=== PATIENT | female | born 1960 | race African-American/Black ===

== ENCOUNTER 2017-12-25 15:24 | Emergency (ER) | payer MEDICAID, OTHER ==
[~2017-12-25] VITALS: Ht 162.6 cm; Wt 45.4 kg
[2017-12-25 15:24] VITALS: BP 163/106
== END 2017-12-25 17:04 | disposition home or self-care (01) ==
LOC: ER 15:29
DX: S93.601A Unspecified sprain of right foot, initial encounter (principal); S99.911A Unspecified injury of right ankle, initial encounter; F41.9 Anxiety disorder, unspecified; M85.80 Other specified disorders of bone density and structure, unspecified site; X58.XXXA Exposure to other specified factors, initial encounter; Y93.89 Activity, other specified; Y92.89 Other specified places as the place of occurrence of the external cause; Y99.8 Other external cause status
CPT/HCPCS: 73610; 99284; A4606; Z7610

== ENCOUNTER 2018-01-24 18:29 | Emergency (ER) | payer OTHER ==
[~2018-01-24] VITALS: Ht 160 cm; Wt 59.0 kg
[2018-01-24 18:29] VITALS: BP 135/107
--- NOTE | 2018-01-24 19:36 | NUR ---
PT STATES SHE DOES NOT WANT TO BE IN THE ER AND STATES SHE WILL CALL HER PRIMARY MD TOMORROW MORNING TO GET BLOOD WORK DONE THERE INSTEAD, NICOLE CHAN MADE AWARE, Patient does not wish to proceed with medical care recommended by NICOLE CHAN. Patient given information related to possible complications, up to and including , which could occur as a result of leaving the hospital at this time. Patient verbalizes understanding of risks involved due to leaving against medical advice. Patient has signed AMA form.
== END 2018-01-24 19:39 | disposition left against medical advice (07) ==
LOC: ER 18:30
DX: R50.9 Fever, unspecified (principal); F41.9 Anxiety disorder, unspecified; Z53.20 Procedure and treatment not carried out because of patient's decision for unspecified reasons
CPT/HCPCS: A4606; Z7502; Z7610

== ENCOUNTER 2022-02-03 19:21 | Emergency (ER) | payer OTHER ==
[~2022-02-03] VITALS: Ht 160 cm; Wt 39.5 kg
--- NOTE | 2022-02-03 19:35 | NUR ---
BIBCAREGIVER. BILAT KNEE AND L FOOT PAIN X 1 HR. STEPPED WRONG ON STAIRS PT IS VERY ANXIOUS. PATIENT ALERT AND ORIENTED X3. BROUGHT IN BY WHEELCHAIR DUE TO THE FOOT PAIN. PATIENT IN BED 09 AWAITING MD PASCUAL.
--- NOTE | 2022-02-03 21:49 | NUR ---
Patient discharged to home in stable condition. Written and verbal after care instructions given. Patient verbalizes understanding of instruction. KAYLA WRAP PROVIDED PER MD ORDER.
[2022-02-03 21:50] VITALS: BP 121/68
== END 2022-02-03 21:55 | disposition home or self-care (01) ==
LOC: ER 19:25
DX: S83.92XA Sprain of unspecified site of left knee, initial encounter (principal); S83.91XA Sprain of unspecified site of right knee, initial encounter; S93.692A Other sprain of left foot, initial encounter; F41.9 Anxiety disorder, unspecified; W18.30XA Fall on same level, unspecified, initial encounter; Y93.89 Activity, other specified; Y92.89 Other specified places as the place of occurrence of the external cause; Y99.8 Other external cause status
CPT/HCPCS: 73564-TC; 73630-TC

== ENCOUNTER 2022-05-16 16:15 | Emergency (ER) | payer OTHER ==
[~2022-05-16] VITALS: Ht 160 cm; Wt 36.3 kg
--- NOTE | 2022-05-16 17:00 | NUR ---
BIBFAMILY FROM HOME C/O WEAKNESS [id number], NO APPETITE. THE PATIENT IS ALERT AND ORIENTED X4. IN ROOM AIR AND DENIES SOB. RESPIRATION REGULAR AND UNLABORED. DENIES PAIN. ATTACHED TO THE MONITOR. WARM BLANKET PROVIDED FOR COMFORT. WILL CONTINUE TO MONITOR THE PATIENT.
[2022-05-16] MEDS ORDERED: IV NS 0.9% 1,000 ML BAG IV ONE (17:30)
--- NOTE | 2022-05-16 17:40 | NUR ---
PATIENT IS ANXIOUS AND UNCOOPERATIVE IN STARTING AN IV AND DRAWING BLOOD
--- NOTE | 2022-05-16 17:45 | NUR ---
ENTERPRISE ENGINEER AT BEDSIDE FOR BLOOD DRAW
--- NOTE | 2022-05-16 18:00 | NUR ---
THE PATIENT REFUSED IV INSERTION, BLOOD DRAW DESPITE EXPLAINING RISKS AND BENEFITS. DR ALICIA MADE AWARE.
--- NOTE | 2022-05-16 18:11 | NUR ---
Patient does not wish to proceed with medical care recommended by Dr. English. Patient given information related to possible complications, up to and including , which could occur as a result of leaving the hospital at this time. Patient verbalizes understanding of risks involved due to leaving against medical advice. Patient has signed AMA form.
[2022-05-16 18:12] VITALS: BP 102/55
[2022-05-23] MEDS ORDERED: Lorazepam PO (07:56)
== END 2022-05-16 18:13 | disposition left against medical advice (07) ==
LOC: ER 16:20
DX: R62.7 Adult failure to thrive (principal); R53.1 Weakness; E43 Unspecified severe protein-calorie malnutrition; Z68.1 Body mass index [BMI] 19.9 or less, adult; F41.9 Anxiety disorder, unspecified; Z86.16 Personal history of COVID-19
CPT/HCPCS: J7030

== ENCOUNTER 2022-05-20 16:46 | Inpatient (IN) | payer OTHER ==
[~2022-05-20] VITALS: Ht 162.6 cm; Wt 34.0 kg
--- NOTE | 2022-05-20 17:30 | NUR ---
BIB FRIEND C/O WEAKNESS. "I FEEL DEHYDRATED" FOR A LONG TIME NOW. THE PATIENT IS ALERT AND ORIENTED X4. IN ROOM AIR AND DENIES SOB. RESPIRATION REGULAR AND UNLABORED. THE PATIENT IS ATTACHED TO THE MONITOR. WARM BLANKET PROVIDED FOR COMFORT. WILL CONTINUE TO MONITOR THE PATIENT.
[2022-05-20] MEDS ORDERED: ONDANSETRON HCL/PF 4 MG/2 ML VIAL IVP ONE (18:00)
[2022-05-20] MEDS ORDERED: IV NS 0.9% 1,000 ML BAG IV ONE (18:00)
[2022-05-20] MEDS ORDERED: ONDANSETRON HCL/PF 4 MG/2 ML VIAL ONE (18:08)
[2022-05-20 18:20] LABS: HEMATOCRIT 38 % (33-45); HEMOGLOBIN 12.9 g/dL (11.5-14.8); LYMPHOCYTES # (AUTO) 0.3 K/uL (0.8-4.8); LYMPHOCYTES % (AUTO) 3.2 % (20.0-44.0); MEAN CORPUSCULAR HGB CONC 34 g/dl (31.0-36.0); MEAN CORPUSCULAR VOLUME 89 fL (82-100); MONOCYTES # (AUTO) 0.5 K/uL (0.1-1.30); MONOCYTES % (AUTO) 5.9 % (2.0-12.0); NEUTROPHILS # (AUTO) 7.8 K/uL (1.8-8.9); NEUTROPHILS % (AUTO) 90.9 % (43.0-81.0); PLATELET COUNT (AUTO) 259 K/uL (150-450); RED BLOOD CELL COUNT(AUTO) 4.28 MIL/uL (4.0-5.2); WHITE BLOOD COUNT (AUTO) 8.6 K/uL (4.3-11.0)
[2022-05-20 18:31] LABS: CALCIUM, SERUM 9.6 mg/dL (8.5-10.1); CARBON DIOXIDE 13 mmol/L (21-32); CHLORIDE 93 mmol/L (98-107); CREATININE 1.2 mg/dL (0.6-1.3); GLUCOSE 83 mg/dL (74-106); POTASSIUM 3.5 mmol/L (3.5-5.1); SODIUM SERUM 134 mmol/L (136-145); UREA NITROGEN, BLOOD 18 mg/dL (7-18)
[2022-05-20 18:32] LABS: MAGNESIUM 2.3 mg/dL (1.8-2.4); PHOSPHORUS 4.2 mg/dL (2.5-4.9)
[2022-05-20 18:36] LABS: SERUM AMMONIA < 10 umol/L (11-32)
--- NOTE | 2022-05-20 19:05 | NUR ---
COVID TEST COLLECTED AND SENT
--- NOTE | 2022-05-20 19:13 | NUR ---
MOVE SHEET SUBMITTED.
[2022-05-20 19:23] LABS: ALANINE AMINOTRANSFERASE 11 U/L (12-78); ALKALINE PHOSPHATASE 43 U/L (46-116); ASPARTATE AMINOTRANSFERASE 7 U/L (15-37); BILIRUBIN,DIRECT 0.3 mg/dL (0.0-0.2)
[2022-05-20 19:24] LABS: ALBUMIN 3.8 g/dL (3.4-5.0); TOTAL PROTEIN, SERUM 7.1 g/dL (6.4-8.2)
--- NOTE | 2022-05-20 19:32 | NUR ---
report given to nurse Vilchis for alistair
--- NOTE | 2022-05-20 19:38 | NUR ---
URINE COLLECTED AND SENT TO LAB
[2022-05-20 19:57] LABS: LIPASE 69 U/L (73-393)
--- NOTE | 2022-05-20 19:57 | NUR ---
LIPASE CORRECTED TO 69 DR. MANJIT DICKSON AWARE
--- NOTE | 2022-05-20 20:34 | NUR ---
RN SPOKE TO BRIAN SEASONAL WAREHOUSE ASSOCIATE STATED PT WILL MOST LIKELT TRANSFER TO [facility] BUT WILL CALL BACK TO CONFIRM
[2022-05-20 20:41] LABS: BILIRUBIN,URINE SMALL (NEGATIVE); COLOR,URINE YELLOW (YELLOW); LEUKOCYTE ESTERASE ,URINE NEGATIVE (NEGATIVE); NITRITE, URINE NEGATIVE (NEGATIVE); PH,URINE 5.5 (5.0-8.0); PROTEIN,URINE TRACE mg/dl (NEGATIVE); UGLUCOSE NEGATIVE (NEGATIVE); UROBILINOGEN,URINE 0.2 EU/dL (0.2)
[2022-05-20 20:58] LABS: BACTERIA,URINE Few /HPF (None Seen); RBC,URINE 0-2 /HPF (0-2); SQUAMOUS EPITHELIAL CELL,UR Few /HPF (None Seen); URINE AMORPHOUS URATE Moderate /HPF (None Seen); WBC,URINE 0-2 /HPF (0-3)
--- NOTE | 2022-05-20 21:34 | NUR ---
RT attempted abg. unable to obtain. pt refused another try. notified dr carvalho. vbg instead.
[2022-05-20 22:38] LABS: ABG BASE EXCESS -9.3 mmol/L; ABG PCO2 32.7 mmHg (35.0-45.0); ABG PH 7.307 (7.350-7.450); ABG PO2 15.8 mmHg (75.0-100.0); COHb 0.3 % (0.5-1.5); MetHb 1.8 % (0.0-1.5); O2Hb 21.9 % (94.0-97.0); SITE, ABG Other; VENT MODE, BG ROOM AIR
--- NOTE | 2022-05-20 22:40 | NUR ---
RT NOTE VBG TAKEN BY RN AND RESULTS GIVEN TO
--- NOTE | 2022-05-21 04:17 | NUR ---
pt awake and alert breathing even and unlabored. call light in reach and communicating needs. remains on monitor and vitals remain stable.
--- NOTE | 2022-05-21 08:24 | NUR ---
report given to Tacos ERICKSON to continue care.
[2022-05-21] MEDS ORDERED: ACETAMINOPHEN 325 MG TABLET PO PRN (08:30)
[2022-05-21] MEDS ORDERED: POTASSIUM CHLORIDE 20 MEQ TAB.PRT.SR PO ONE (09:00)
[2022-05-21] MEDS: IV D5/ NS 10 MEQ KCL 1000 ML IV SCH ×4 (10:00→18:42)
--- NOTE | 2022-05-21 10:13 | NUR ---
room 109
--- NOTE | 2022-05-21 10:37 | NUR ---
report given to Antonieta ERICKSON to continue care.
--- NOTE | 2022-05-21 11:15 | NUR ---
patient wheeled via gurney accompanied by RN and emt in no distress. RN assigned at bedside to assume care.
[2022-05-21 11:55] VITALS: BP 111/69
[2022-05-21 16:00] VITALS: BP 104/64
[2022-05-21] MEDS: PROSOURCE / PROSTAT (PYXIS) 30 ML UDC PO SCH (17:50)
--- NOTE | 2022-05-21 18:16 | NUR ---
RN NOTE TALKED TO PT'S SISTER YOUNG ([phone]) AT BEDSIDE. SISTER EXPRESS DESIRE TO TALK DIRECTLY TO BASEBALL SCOUT AND DIETARY TOMORROW AM. SISTER EXPRESS DESIRE TO PT TO RECEIVE A PSYCH CONSULT TO RULE OUT POSSIBLE EATING DISORDER LEADING TO HER FAILURE TO THRIVE.
[2022-05-21 20:00] VITALS: BP 103/79
[2022-05-21] MEDS: MIRTAZAPINE 15 MG TABLET PO SCH ×2 (22:00→22:38)
--- NOTE | 2022-05-21 23:05 | NUR ---
AISLINN/MEDICAL DIAGNOSTIC RADIOGRAPHER PT REFUSED MEDICATION @2200. SAID HER STOMACH HURTS, WHEN OFFERED PAIN MED. PT REFUSED.
--- NOTE | 2022-05-22 00:19 | NUR ---
AISLINN/APPLICATION TRAINER SPOT CHECK OF BLOOD SUGAR BECAUSE LAST SUGAR CHECK WAS 53, IT'S NOW 229. NO COVERAGE FOR THIS. WILL MONITOR THIS PT'S SUGAR
--- NOTE | 2022-05-22 02:31 | NUR ---
AISLINN/MARINE SPECIALIST PT APPEARS TO BE SLEEPING COMFORTABLE WITHOUT ANY ISSUES. CALL LIGHT WITHIN REACH.
[2022-05-22 04:00] VITALS: BP 111/65
[2022-05-22] MEDS: IV D5/ NS 10 MEQ KCL 1000 ML IV SCH ×4 (05:13→19:00)
--- NOTE | 2022-05-22 05:45 | NUR ---
AISLINN/INSOLE TAPE STITCHER UCO PT REFUSED TO HAVE BLOOD DRAWN SAID SHE IS IN PAIN. WILL TRY AGAIN LATER.
--- NOTE | 2022-05-22 06:30 | NUR ---
AISLINN/BOB CALLED [facility] 1900 FOR THIS PT TO HAVE PSYCH CONSULT THEY SAID DR WILL COME SEE PT AND UPDATED ROOM.
--- NOTE | 2022-05-22 07:30 | NUR ---
OPENING NOTE: REPORT RECEIVED FROM NEDRA ROJAS. ORDERS AND LABS REVIEWED DURING REPORT. PT CHECKED ON HOURLY AND PRN BY NURSING STAFF.
[2022-05-22 07:33] LABS: BASOPHILS % (AUTO) 0.1 % (0.0-2.0); EOSINOPHILS % (AUTO) 0.1 % (0.0-6.0); HEMATOCRIT 29 % (33-45); LYMPHOCYTES # (AUTO) 0.3 K/uL (0.8-4.8); LYMPHOCYTES % (AUTO) 6.5 % (20.0-44.0); MEAN CORPUSCULAR HGB CONC 35 g/dl (31.0-36.0); MEAN CORPUSCULAR VOLUME 87 fL (82-100); MONOCYTES # (AUTO) 0.3 K/uL (0.1-1.30); MONOCYTES % (AUTO) 6.7 % (2.0-12.0); NEUTROPHILS # (AUTO) 4.4 K/uL (1.8-8.9); NEUTROPHILS % (AUTO) 86.6 % (43.0-81.0); PLATELET COUNT (AUTO) 154 K/uL (150-450); RED BLOOD CELL COUNT(AUTO) 3.28 MIL/uL (4.0-5.2); WHITE BLOOD COUNT (AUTO) 5.1 K/uL (4.3-11.0)
[2022-05-22] MEDS: PROSOURCE / PROSTAT (PYXIS) 30 ML UDC PO SCH ×3 (08:00→17:00)
[2022-05-22] MEDS ORDERED: LORAZEPAM 0.5 MG TABLET PO PRN (09:30)
[2022-05-22] MEDS: POLYVINYL ALCOHOL 15 ML BOTTLE EACHEYE PRN ×2 (09:34→17:51)
[2022-05-22] MEDS ORDERED: ZOLPIDEM TARTRATE 5 MG TABLET PO PRN (10:00)
[2022-05-22 10:48] LABS: BILIRUBIN,TOTAL 0.7 mg/dL (0.2-1.0); CALCIUM, SERUM 8.7 mg/dL (8.5-10.1); CREATININE 0.8 mg/dL (0.6-1.3); TOTAL PROTEIN, SERUM 5.8 g/dL (6.4-8.2)
[2022-05-22 10:54] LABS: THYROID STIMULATING HORMONE 5.949 uIU/mL (0.358-3.74)
[2022-05-22 10:58] LABS: POTASSIUM 2.6 mmol/L (3.5-5.1)
--- NOTE | 2022-05-22 11:15 | NUR ---
DR RIVERA NOTIFIED OF PATIENTS POTASSIUM RESULT OF 2.6, PT REFUSING TO TAKE PILLS. AWAITING REPLY
[2022-05-22 11:24] VITALS: BP 110/54
--- NOTE | 2022-05-22 11:30 | NUR ---
REPORT CALLED TO EBENEZER ERICKSON FOR PT TRANSFER TO ROOM 326
--- NOTE | 2022-05-22 11:35 | NUR ---
MS RN NOTE RECEIVED VERBAL REPORT FROM ATUL. AWAITING PATIENT TRANSFER.
--- NOTE | 2022-05-22 11:40 | NUR ---
PT REFUSED TO BE TRANSFERRED TO 3 BECAUSE SHE REFUSES TO BE IN THE ELEVATOR. RN AND BUS OR TRUCK GARAGE MECHANIC SPOKE TO PATIENT. PATIENT CONTINUES TO REFUSE. TRANSFER TO 3 CANCELLED.
[2022-05-22] MEDS: POTASSIUM CL. PREMIX PERIPHER. 50 ML IV SCH ×7 (12:27→23:30)
[2022-05-22] MEDS ORDERED: IV NS 0.9% 250 ML IV PRN (12:30)
--- NOTE | 2022-05-22 14:42 | NUR ---
SS Consult: SS Consult requested for safe DC planning. The pt. is a 62-year-old female patient that was brought in by friend after pt. felt weakness/ dehydrated per EMR. Upon SS consult, the pt. is A&O x 4 and makes poor eye contact. Pt. states she has a headache and it hurt to keeps eyes open. The pt. appears well-groomed and presents with dysphoric mood and distressed affect. Pt. denies current SI/HI and denies current hallucinations. Pt. has normal thought process and speech is WNL. Pt. states she had COVID-19 IN 03/2022 and began to have very bad gastrointestinal problems. Per pt. is became difficult and painful to eat and per pt. she has lost weight. ANGE explored pt.s living situation. Per pt., she lives at home[[address] [facility] [address]; [phone]] alone. ANGE explored pt.s drug or alcohol use and pt. denies any use of drug or alcohol. Pt. states she receives SSI and food stamps. ANGE explored pt.s mental health pt. stated she has Hx. of Anxiety and per EMR, pt. has psych consult. Plan: Pt. stated that after COVID-19 she began to get so weak she was not able to care for herself. Pt. states when medically cleared she would like to go to live with her Sister, Joseline [phone]. Pt. states she discussed this with Joseline and that Joseline is thinking about it. Pt. states if she goes home to her apt[[address] [facility] [address]; [phone]] she may need additional help. ANGE notified pt. that MD an possibly PT will be making recommendations on level of care she needs at time of DC. Pt. is agreeable to plan. ANGE provided pt. with senior resources (caregiving, transportation, MealS, DME)and pt. accepted them. ABUSE PREVENTION: ELDER ABUSE HOTLINE (24/05) ADULT PROTECTIVE SERVICES HOTLINE LONG-TERM CARE [facility] Region AREA ON AGING (HOTLINE) ADULT DAY HEALTH CARE CARE CENTERS: Private pay or [facility] company funded adult day care [place] Adult Day Health Care [facility] , [facility] , [facility] Adult [facility] Center , [facility] Adult Day Health Care , [facility] Day Health Care , Merged With [facility] Adult Daycare Center , [place] [facility] , [facility] , [place] ALZHEIMERS DISEASE/DEMENTIA: Alzheimers Association Helpline [facility] www.alz.org/[facility] Department of Aging www.lacity.org Family Caregiver [place] www.caregiver.org [place] Caregiver Resources Center/Family Support www.[facility].org CANCER RESOURCES: [place] Cancer Society www.cancer.org Cancer Support Community www.CancerSupportVvsb.org: CancerCare www.cancercare.org [facility] Cancer Support Center www.[facility].org COMMUNITY HEALTH ASSOCIATIONS: AARP www.aarp.org ALS Association (ask for Keesha) www.als.org Egyptian Diabetes Association www.diabetes.org Egyptian Heart Association www.heart.org Egyptian Lung Association www.lungusa.org Egyptian Parkinson Disease Association www.apdaparkinson.org Egyptian [place] , www.redcross.org Arthritis Foundation www.arthritis.org Crohns & Colitis Foundation of [place] www.ccfa.org/chapters/[place] National Multiple Sclerosis Society www.nationalmssociety.org Myasthenia Gravis Foundation www.myasthenia-ca.org National Stroke Association www.stroke.org CONSERVATORSHIP & GUARDIANSHIP: AARP Evelia Becerar Legal Services Center for Health Care Rights Eldercare Information and Referral Barrel Bung Remover And Dumper Foundation [facility]: [facility] Referral Service [facility] Legal Services Office of the Public Guardian [place] EYESIGHT DISORDER RESOURCES: [place] Macular Degeneration Foundation [facility] www.mt. [facility].org GRIEF AND BEREAVEMENT RESOURCES: The Gathering Place , [facility] THE [place] Connection , [facility] Bereavement Center , Pauline HEARING DISORDER RESOURCES: [place] Telephone Access Program Deaf and Disabled Telecommunications Program www.ddtp.[facility].ca.gov HearRx Hearing Centers ([place]) Better Hearing Systems , Pauline GLAD ([facility] Agency on Deafness) V/ TTY; Third Cook , [facility] Hearing [facility] -low income hearing aid assistance www.Mashworkhearingfoundation.org [place] Hearing Care , Anthony HELP AT HOME CAREGIVER SUPPORT: In Home Support Services (Must have Medi-Pato to be eligible) *Ask for a list of agencies that provide services to assist with care in the home. Local Senior Centers also have listings of care providers. HOME SAFETY MODIFICATIONS AND EQUIPMENT: Senior centers have additional referrals. [place] NEXTA Media and Community Investment Dept. Handyworker Program (low income) or Visit http://hcidla.[facility].org/edj-tdxhxj-ox for more information National Seating and Mobility and/or ; Forever Active www.foreverTactus Technology.GameCrush Stay Home Safe www.Stayhomesafe.com LIFE ALERT RESPONSE SYSTEM: Evolver Services 410-088-7300 www. BBL Enterprises Life Alert 719-837-7511 www.Lumavita Life Station 745-421-8009 www.ScreenScape Networksation.GameCrush Safe Return 962-026-2476 www.alz.or/safereturn Cell Phones for Seniors www.Procarta Biosystems MEALS AND FOOD PROGRAMS: [place] Meals on Wheels [phone] [place] Meals on Wheels [phone] [facility] [phone] [place] to the Homebound [phone] [place] to the Homebound [phone] [facility] to the Homebound [phone] [facility] to the Homebound [phone] Jung Esteves [phone] [facility] [phone] ONE Generation [phone] [facility] [phone] [facility] [place] [phone] Meals on Wheels [phone] For all ages: $6.85/ meal w side. Delivered M-F from 10 am-1pm. Application and payment is done over the phone. Frozen meals available for weekends. Emergency Food [facility] [phone] [facility] Front Counter Attendant [phone] [facility] [phone] Steve Sharma Outreach- Brown bag lunches [phone] [facility] [phone] MEAL/GROCERY DELIVERY PROGRAMS: Toni Hutchins Gourmet Meals [phone]- [facility] [phone]- [facility] Magic Kitchen [phone] Moms Meals [phone] (ask Ray for Discount Select grocery stores may provide delivery. MEDICAL INSURANCE SUPPORT SERVICES: Center for Health Care Rights [phone] Health Insurance Counseling/Advocacy Programs (HICAP)-Must have Medicare. Offers counseling for Medi-Pato eligibility [phone] [facility] Public Front Counter Attendant [phone] www.[facility].ca.gov Medicare [phone] www.socialsecurity.org Social Security [phone] SENIOR ACTIVITY PROGRAMS: *Contact a local senior center, adult school, recreation facility or community college for education, fitness, recreation, and social programs. Aquatic Therapy and Adapted Exercise programs through [facility] [phone] Encore at [facility] [phone] www.[facility]/encore U- Senior Friends [phone] [place] Senior Programs [phone] www.oasisnet.org Suddenly 65 www.cwumjvhz47.com SENIOR CENTERS: [facility] [phone] [facility] [phone] [facility] [phone] [facility] [phone] [facility] [phone] [facility] [phone] [facility] [phone] [facility] [phone] One Generation, [place]eda [facility] [phone] [facility] [phone] [facility] [phone] [facility] [phone] [facility] [phone] TRANSPORTATION: Local Senior Centers may have applications for transportation programs and additional resources. ACCESS Services [phone] Transportation for seniors and disabled persons 7 days a week requiring 254 hr. advance reservation. Must apply and register for program kvng eligible. Comeet [phone] or [phone] Transportation for seniors and persons with ADA card/metro disabled card in the [facility]. M-F only. Must register for services. ONE GENERATION [phone] Serves 65 years + in conjunction with myFairPartner program. Must be registered with both programs. A to B Transport [phone] Provides wheelchair/gurney van service. Adult Medical Transport [phone] Accepts Medi-pato with prior authorization. Care Van [phone] Provides wheelchair Transport. [facility] Wide Transportation [phone] Provides gurney service Gentle [facility] [phone] Gurney Transport. [facility] Transportation [phone] wheelchair & gurney transport [facility] Transportation [phone] wheelchair & gurney transport [place] Non-Emergency Transport [phone] wheelchair & gurney transport [facility] [phone] Short Term Transportation primarily for adults with disabilities on social security income. Nominal fee may apply and a reservation is required. [facility] Cab [phone] or [phone] YABUY [facility] [phone] [place] [address] Referral Services [phone] For additional programs & services VETERANS RESOURCES: Submissions for Aid and Attendance should be done directly to Federal VA office locatd at : [address] [facility] [phone] National Caregiver Support Line [phone] [facility] Veterans Services Field Office [phone] [place] Department of [place] Affairs [phone] Pension Information [phone]
--- NOTE | 2022-05-22 15:00 | NUR ---
IVF AND POTASSIUM INFUSION STOPPED AT THIS TIME PER PT REQUEST D/T PAIN IN IV SITE. MIDLINE ORDER PLACED. PT REFUSES FOR ANOTHER PERIPHERAL IV TO BE STARTED OR ANY IVF STARTED AT THIS TIME.
[2022-05-22 16:00] VITALS: BP 106/58
--- NOTE | 2022-05-22 18:10 | NUR ---
MS RN NOTE FOLLOW-UP MADE, CALLED A[facility]LINN AND WAS TOLD THEY ARE HOLDING OFF TRANSFER FOR NOW.
--- NOTE | 2022-05-22 18:21 | NUR ---
RIGHT UPPER ARM MIDLINE INSERTED WITHOUT DIFFICULTY AT THIS TIME. IVF AND POTASSIUM RESUMED PER MD ORDERS
--- NOTE | 2022-05-22 19:20 | NUR ---
MS RN OPENING NOTES: RECEIVED PATIENT IN BED, COVERED HER EYES WITH THE TOWEL, AWAKE, INTERACTS WHEN TALK TO HER. NO S/S OF DISTRESS NOTED. NO COMPLAIN OF PAIN. CALL LIGHT WITHIN REACH. BED ALARM ON. BED IN LOWEST AND LOCKED POSITION.
[2022-05-22 20:00] VITALS: BP 97/60
[2022-05-23] MEDS: POTASSIUM CL. PREMIX PERIPHER. 50 ML IV SCH (00:45)
[2022-05-23] MEDS: IV D5/ NS 10 MEQ KCL 1000 ML IV SCH ×4 (04:36→15:17)
[2022-05-23 05:00] VITALS: BP 108/70
--- NOTE | 2022-05-23 07:30 | NUR ---
RN OPENING NOTE PATIENTIS IN BED, AWAKE ALERT ORIENTED X 4.ON ROOM AIR, BREATHING UNLABORED AND NOT IN ANY FORM OF DISTRESS. DENIES PAIN. WITH RIGHT UPPER ARM MIDLINE INFUSING WITH NS AT 10 MEQ KCL AT 100 ML/HR, NO INFILTRATION OF PHLEBITIS NOTED ON IV SITE. BED IS LOCKED IN LOWEST POSITION, 3 SIDE RAILS UP. CALL LIGHT WITHIN REACH. WILL CONTINUE TO MONITOR THROUGHOUT SHIFT.
[2022-05-23] MEDS ORDERED: Lorazepam PO (07:56)
[2022-05-23 07:57] LABS: CALCIUM, SERUM 8.5 mg/dL (8.5-10.1); CREATININE 0.8 mg/dL (0.6-1.3); MAGNESIUM 1.7 mg/dL (1.8-2.4); PHOSPHORUS 1.2 mg/dL (2.5-4.9)
[2022-05-23] MEDS: PROSOURCE / PROSTAT (PYXIS) 30 ML UDC PO SCH ×3 (08:54→17:00)
[2022-05-23] MEDS: Magnesium 1GM/D5W 100ML PREMIX 100 ML IV SCH ×2 (08:57→09:30)
[2022-05-23] MEDS: POLYVINYL ALCOHOL 15 ML BOTTLE EACHEYE PRN (08:57)
[2022-05-23] MEDS: POTASSIUM PHOSPHATE MM 7.5 MMOL in IV NS 0.9% 100 ML IV SCH ×2 (08:59→11:56)
[2022-05-23] MEDS: K PHOS NEUTRAL 250 MG TABLET PO SCH ×3 (08:59→17:00)
[2022-05-23 10:00] VITALS: BP 111/69
--- NOTE | 2022-05-23 10:39 | NUR ---
RN NOTE PATIENT REFUSED SECOND BAG OF MAGNESIUM AND STATED THAT MAGNESIUM GIVES HER DIARRHEA. I EDUCATED HER ABOUT WHAT THE MEDICATION IS FOR AND IT'S INTENDED EFFECT BUT PATIENT STILL REFUSED. Addendum: 05/23/22 at 1133 by SHIRLEY THEODORE RN PATIENT NOW STATES SHE SI STILL THINKING ABOUT GETTING MAGNESIUM. SHE SAYS SHE NEEDS TIME TO DECIDE. MAGNESIUM (BAG IS PUNCTURED AND IS IN IV PUMP) IS STILL ON STANDBY AT BEDSIDE. Addendum: 05/23/22 at 1602 by SHIRLEY THEODORE RN PATIENT HAS DECIDED THAT SHE WILL NOT TAKE MAGNESIUM IV.
--- NOTE | 2022-05-23 16:03 | NUR ---
RN NOTE PATIENT NOTED TO BE ANXIOUS. I OFFERED GIVING HER ATIVAN FOR HER ANXIETY BUT SHE REFUSED. I PROVIDED A CALM AND QUIET ENVIRONMENT INSTEAD AND REASSURED HER THAT SHE IS SAFE.
--- NOTE | 2022-05-23 16:25 | NUR ---
RN NOTE PATIENT REFUSED IV INFUSION OF 10 MEQ KCL IN NORMAL SALINE AT 100 ML/HR. PATIENT STATED "I'M HAVING DIARRHEA BECAUSE OF ALL THE FLUIDS YOU ARE GIVING." I EXPLAINED TO HER WHY SHE NEEDS THE INFUSION BUT PATIENT STILL REFUSED.
[2022-05-23] MEDS ORDERED: MENTHOL/CETYLPYRD (CEPACOL) 1 LOZ LOZENGE PO PRN (17:30)
--- NOTE | 2022-05-23 18:42 | NUR ---
RN CLOSING NOTE PATIENT IS RESTING COMFORTABLY IN BED, ASLEEP BUT EASILY AROUSABLE. ON ROOM AIR, BREATHING UNLABORED AND NOT IN ANY FORM OF DISTRESS,. STILL ANXIOUS. RIGHT UPPER ARM MIDLINE INTACT. PATIENT STABLE THROUGHOUT SHIFT. KEPT COMFORTABLE. BED IS LOCKED IN LOWEST POSITION, 3 SIDE RAILS UP, CALL LIGHT WITHIN REACH. WILL ENDORSE TO TEACHING MANAGER NURSE.
--- NOTE | 2022-05-23 19:05 | NUR ---
RN NOTES RECEIVED PT FOR CONTINUITY OF CARE. PATIENT A/OX4 IN NO S/SX OF ACUTE DISTRESS AT THIS TIME; CURRENTLY ON ROOM AIR WITH 02 SAT >95% AT THIS TIME. MS STATUS. PT NOTED TO BE VERY ANXIOUS BUT REFUSES MEDICATION. IV ACCESS PATENT AND INTACT BUT RECEIVED WITH NO IV FLUIDS RUNNING, SUPPOSEDLY TO HAVE A RUNNING NC+10MEQ KCL BUT PT REFUSED SINCE AM, MD AWARE PER MORNING SHIFT RN. WILL ENSURE SAFETY MEASURES WITHIN THE SHIFT. PATIENT BED ALARM IS ON. HEAD OF BED ELEVATED. BED IS LOCKED, IN LOWEST POSITION AND SIDE RAILS UP. CALL LIGHT WITHIN REACH OF THE PATIENT. APPLICABLE ISOLATION PRECAUTIONS IN PLACE. WILL CONTINUE TO MONITOR AND REASSESS FOR ANY CHANGES AND WILL CARRY OUT ANY ONGOING AND ACTIVE MD ORDER.
[2022-05-23 20:00] VITALS: BP 112/77
--- NOTE | 2022-05-23 20:30 | NUR ---
RN NOTES REINITIATED IV FLUIDS OF NS +10MEQ KCL; EXPLAINED RISKS AND BENEFITS TO PT AND PT AGREED TO RUN IV FLUIDS. BUSINESS INSTRUCTOR MADE AWARE. WILL CONTINUE TO MONITOR AND ASSESS THROUGHOUT THE SHIFT.
[2022-05-24] MEDS: IV D5/ NS 10 MEQ KCL 1000 ML IV SCH ×2 (01:09)
--- NOTE | 2022-05-24 01:40 | NUR ---
RN NOTES D5NS WITH 10 MEQ KCL NOT GIVEN SCHEDULED, NOT AVAILABLE; NSG SUP AND CUSTOM VAN CONVERTER WELL AWARE. WILL ENDORSE TO PHARMACY AND AM SHIFT RN FOR FOLLOW THROUGH.
[2022-05-24] MEDS ORDERED: GUAIFENESIN/D-METHORPHAN HB 5 ML UDC PO PRN (02:00)
--- NOTE | 2022-05-24 02:10 | NUR ---
PATIENT WAS TAKEN OUTSIDE VIA W/C AND ACCOMPANIED PATIENT TO HER FRIEND'S PRIVATE VEHICLE TO BE TAKEN TO THE NURSING FACILITY. PATIENT LEFT IN NO DISTRESS. PATIENT REFUSED ALL HER PO MEDS AND MD WAS MADE AWARE PRIOR TO DISCHARGE.
[2022-05-24 04:00] VITALS: BP 125/67
--- NOTE | 2022-05-24 04:00 | NUR ---
RN NOTES PATIENT REMAINED TO BE IN NO SIGNS OF ACUTE RESPIRATORY DISTRESS, SAFE ENVIRONMENT MAINTAINED FOR PT. AM PATIENT CARE DONE. WILL CONTINUE TO MONITOR AND REASSESS FOR ANY CHANGES THROUGHOUT THE SHIFT.
--- NOTE | 2022-05-24 06:43 | NUR ---
RN CLOSING NOTE: PATIENT REMAINS IN ROOM IN NO SIGNS OF RESPIRATORY DISTRESS, PATIENT STILL ON ROOM AIR;TOLERATING WELL SATURATING @ >95% SP02. MED SURG STATUS. FOR DC TODAY ; TRANSPORTATION ARRANGED BY CALLTHE CAR ([phone]) [facility]. PICKUP TIME BY 11AM TO BE TRANSPORTED TO [facility]. SAFETY MEASURES IMPLEMENTED, BED IN LOWEST POSITION, LOCKED, SIDE RAILS UP, CALL LIGHT WITHIN REACH. ALL NEEDS AND ORDERS ADDRESSED DURING THE SHIFT. IV ACCESS MAINTAINED INTACT, SECURED AND FLUSHING WELL. ALL DUE MEDS GIVEN ORDERED & SCHEDULED ; PATIENT TOLERATED WELL. PATIENT KEPT CLEAN AND COMFORTABLE WITHIN THE SHIFT. PATIENT ENDORSED TO INCOMING SHIFT RN WITH STABLE VITAL SIGN AND FOR CONTINUITY OF CARE.
[2022-05-24 06:44] LABS: CALCIUM, SERUM 8.4 mg/dL (8.5-10.1); CREATININE 0.6 mg/dL (0.6-1.3); MAGNESIUM 1.7 mg/dL (1.8-2.4); PHOSPHORUS 1.8 mg/dL (2.5-4.9); POTASSIUM 3.4 mmol/L (3.5-5.1)
[2022-05-24] MEDS ORDERED: IV D5/ NS 10 MEQ KCL 1000 ML IV PRN ×2 (07:30)
--- NOTE | 2022-05-24 07:30 | NUR ---
RN OPENING NOTES: RECEIVED PATIENT IN BED, AWAKE, ALERT, ORIENTED X 4, DENIES ANY PAIN OR DISCOMFORT AT THIS TIME. COOPERATIVE AND IN NO ACUTE DISTRESS AT THIS TIME. PATIENT IS BREATHING UNLABORED, REGULAR, NO SOB NOTED. ON RA WITH OXYGEN SATURATION OF 96%. ON D5 NS + 10 MEQ KCL RUNNING AT 100 ML/HR ORDERED. IV LINE ON RIGHT UPPER ARM MIDLINE, SITE PATENT AND NO S/S OF INFILTRATION NOTED. PATIENT WILL BE DISCHARGED TODAY PREVIOUSLY ORDERED BY THE DOCTOR. SAFETY MEASURES IN PLACE. CALL LIGHT WITHIN REACH. HOB SLIGHTLY ELEVATED, SR UP X 2. BED LOCKED AND IN LOWEST POSITION. WILL CONTINUE TO MONITOR
[2022-05-24 08:00] VITALS: BP 108/67
[2022-05-24] MEDS ORDERED: POTASSIUM CHLORIDE 10 MEQ/50 ML PREMIXED IVPB FOR PERIPHERAL LINE IV ONE (09:30)
[2022-05-24] MEDS ORDERED: POTASSIUM CL. PREMIX PERIPHER. 50 ML IV SCH (09:30)
[2022-05-24] MEDS ORDERED: Magnesium 1GM/D5W 100ML PREMIX 100 ML IV SCH (09:30)
--- NOTE | 2022-05-24 09:52 | NUR ---
RECEIVED AN ORDER FROM DR RIVERA TO D/C PATIENT TO SNF ONCE CXR IS TAKEN, AND NO NEED TO WAIT FOR RESULTS. WILL FOLLOW UP
[2022-05-24] MEDS ORDERED: POTASSIUM CHLORIDE 20 MEQ TAB.PRT.SR PO ONE (10:00)
[2022-05-24] MEDS ORDERED: MAGNESIUM OXIDE 400 MG TABLET PO SCH (10:00)
--- NOTE | 2022-05-24 10:00 | NUR ---
PATIENT DOES NOT HAVE HER PROSTAT AVAILABLE, CALLED [facility]
[2022-05-24] MEDS: K PHOS NEUTRAL 250 MG TABLET PO SCH (10:05)
--- NOTE | 2022-05-24 10:36 | NUR ---
CALLED [facility] @ , SPOKE WITH QUINCY AND SAID THAT SHE WILL CALL US BACK BECAUSE SHE NEEDS TO VERIFY AND COORDINATE PATIENT'S ADMITTANCE TO THE FACILITY.
--- NOTE | 2022-05-24 11:00 | NUR ---
TRANSPORTATION CAME ([facility]) GAVE REPORT TO MICK BUT PATIENT DECLINED TO BE ADMITTED TO THE FACILITY AND WANTS TO BE DISCHARGED HOME. CASE MANGER CONTACTED AND WAS INFORMED. PATIENT PREFERS TO BE PICKED UP BY HER FRIEND AND REFUSED TO BE TRANSPORTED. PATIENT WILL ARRANGE HER OWN TRANSPORTATION TO HOME
--- NOTE | 2022-05-24 12:05 | NUR ---
RECEIVED A CALL FROM [facility] SERVICE STATION OPERATOR AT [phone] AND WAS INFORMED THAT THE PATIENT WILL BE PICKED UP BY HER FRIEND TO TAKE TO SNF. DID NOT RECEIVE A CALL BACK FROM [facility]. CALLED THEM AGAIN AT , SPOKE WITH BOB DAVID AND GAVE REPORT FOR THE PATIENT. PATIENT'S LATEST V/S FOLLOWS: TEMP 98.7, PULSE, 75 RESPIRATION RATE 20 BP 104/66 OXYGEN SATURATION AT 96% RA.
--- NOTE | 2022-05-24 13:56 | NUR ---
MONIK FRIEND CAME BY TO SEPARATIONS SCIENTIST THE PATIENT TO GO TO [facility]. CALLED THE FACILITY AND CONFIRMED THE BED AVAILABILITY AND THE PATIENT WILL BE IN ROOM 2. ADDRESS OF THE FACILITY [address] [place] [address] GIVEN TO MONIK WELL THE PHONE NUMBER
--- NOTE | 2022-05-24 15:13 | NUR ---
MEDS THAT WERE SUPPOSED TO BE GIVEN TO THE PATIENT WERE ALL REFUSED BY THE PATIENT. MEDS WASTED AND WITNESSED BY CHARGE NURSE
== END 2022-05-24 15:34 | DRG 422 ==
LOC: ER 16:53 → TELE 05-21 08:24 → TELE1 05-21 10:12 → MEDSG1 05-21 11:06
PROVIDERS: ADMIT Internal Medicine; ATTEND Internal Medicine
PROC: 05HB33Z Insertion of Infusion Device into Right Basilic Vein, Percutaneous Approach (ICD-10-PCS; principal; 2022-05-22)
DX: E86.0 Dehydration (principal); E43 Unspecified severe protein-calorie malnutrition; E87.2 Acidosis; R62.7 Adult failure to thrive; Z68.1 Body mass index [BMI] 19.9 or less, adult; F43.10 Post-traumatic stress disorder, unspecified; Z86.16 Personal history of COVID-19; Z20.822 Contact with and (suspected) exposure to COVID-19; E16.2 Hypoglycemia, unspecified; F41.1 Generalized anxiety disorder
CPT/HCPCS: 36410; 36415; 36600; 71045-TC; 80048-TC; 80053-TC; 80076-TC; 81001; 82140-TC; 82533; 82550-TC; 82803-TC; 82962-TC; 83605-TC; 83690-TC; 83735-TC; 84100-TC; 84443-TC; 85025-TC; 87081-TC; 97112-TC; C9803; G0378; J2405; J3475; J3480; J3490; J7030; J7040; J7042; J7050